=== PATIENT | male | born 1970 | race American Indian/Alaskan Native ===

== ENCOUNTER 2021-07-24 23:43 | Observation (INO) | payer BC, OTHER ==
[2021-07-25] MEDS ORDERED: ASPIRIN 325 MG TAB PO ONE (01:31)
[2021-07-25 02:09] LABS: Basophils # (Auto) 0.1 K/mm3 (0.0-0.1); Basophils % (Auto) 1.1 % (0.0-1.8); Eosinophils # (Auto) 0.6 K/mm3 (0.0-0.4); Eosinophils % (Auto) 7.7 % (0.0-4.3); Hematocrit 43.6 % (35.5-45.6); Hemoglobin 14.2 gm/dl (11.8-15.2); Lymphocytes # (Auto) 2.6 K/mm3 (1.2-5.4); Lymphocytes % (Auto) 34.9 % (13.4-35.0); Mean Corpuscular HGB Conc 33 % (32-34); Mean Corpuscular Volume 89 fl (84-94); Monocytes # (Auto) 0.6 K/mm3 (0.0-0.8); Monocytes % (Auto) 8.5 % (0.0-7.3); Platelet Count 277 K/mm3 (140-440); Red Blood Count 4.88 M/mm3 (3.65-5.03); Red Cell Distribution Width 13.8 % (13.2-15.2)
--- NOTE | 2021-07-25 02:10 | XRay Report ---
CHEST 2 VIEWS INDICATION / CLINICAL INFORMATION: chestpain. COMPARISON: None available. FINDINGS: SUPPORT DEVICES: None. HEART / MEDIASTINUM: Heart size and mediastinal contour appear within normal limits. LUNGS / PLEURA: No significant pulmonary or pleural abnormality. No pneumothorax. BONES: No significant osseous abnormality. ADDITIONAL FINDINGS: No significant additional findings. IMPRESSION: 1. No active cardiopulmonary disease. Signer Name: Trung Rodriguez II, MD Signed: 07/25/2021 2:06 AM Workstation Name: [id number]
[2021-07-25 02:20] LABS: Albumin 3.6 g/dL (3.9-5)
[2021-07-25 02:44] LABS: Chol/HDL Ratio 6.4 %
[2021-07-25] MEDS ORDERED: MORPHINE 4 MG/1 ML INJ IV ONE (02:58)
--- NOTE | 2021-07-25 02:58 | Emergency Department Report ---
ED Chest Pain HPI - General Chief Complaint: Chest Pain Stated Complaint: CHEST PAIN Time Seen by Provider: 07/25/21 01:53 Source: patient Mode of arrival: Stretcher Limitations: No Limitations - History of Present Illness Initial Comments: Patient 51-year-old male with history of coronary artery disease and 2 coronary stents presenting with complaint of chest pain. States the symptoms began yesterday. States he felt a burning sensation in his chest and subsequently took a sublingual nitroglycerin which initially improved his symptoms. States he experienced return of chest pain late tonight and took another nitroglycerin. He then told his sister to bring him to the emergency department for evaluation. He currently reports burning sensation in his right chest. Severity scale (0 -10): 5 - Related Data Allergies Allergy/AdvReac Type Severity Reaction Status Date / Time No Known Allergies Allergy Verified 07/25/21 01:57 Heart Score - HEART Score History: Moderately suspicious EKG: Normal Age: 45-65 Risk factors: > 3 risk factors or hx of atherosclerotic disease Troponin: 1-3x normal limit HEART Score: 5 - EKG Read Time Time EKG Completed: 01:35 EKG Read Time: 01:40 - Critical Actions Critical Actions: 4-6 pts:12-16.6% risk of adverse cardiac event. Should be admitted ED Review of Systems ROS: Stated complaint: CHEST PAIN Other details as noted in HPI Constitutional: denies: chills, fever Respiratory: denies: cough, shortness of breath, wheezing Cardiovascular: chest pain Gastrointestinal: denies: abdominal pain, nausea, diarrhea Genitourinary: denies: urgency, dysuria Musculoskeletal: denies: back pain, joint swelling, arthralgia Skin: denies: rash, lesions Neurological: denies: headache, weakness, paresthesias Psychiatric: denies: anxiety, depression ED Past Medical Hx - Past Medical History Previous Medical History?: Yes Hx Heart Attack/AMI: Yes - Surgical History Past Surgical History?: Yes Hx Coronary Stent: Yes - Social History Smoking Status: Unknown if ever smoked ED Physical Exam - General Limitations: No Limitations General appearance: alert, in no apparent distress - Head Head exam: Present: atraumatic, normocephalic - Neck Neck exam: Present: normal inspection - Respiratory Respiratory exam: Present: normal lung sounds bilaterally. Absent: respiratory distress - Cardiovascular Cardiovascular Exam: Present: regular rate, normal rhythm, normal heart sounds. Absent: systolic murmur, diastolic murmur, rubs, gallop - GI/Abdominal GI/Abdominal exam: Present: soft. Absent: distended, tenderness - Rectal Rectal exam: Present: deferred - Neurological Exam Neurological exam: Present: alert, oriented X3 - Psychiatric Psychiatric exam: Present: normal affect, normal mood - Skin Skin exam: Present: warm, dry, intact, normal color ED Course Vital Signs 07/25/21 07/25/21 07/25/21 01:35 01:37 01:45 Temperature 98 F Pulse Rate 91 H 78 Respiratory 18 18 Rate Blood Pressure 157/94 155/88 Blood Pressure [Left] O2 Sat by Pulse 100 95 99 Oximetry 07/25/21 07/25/21 01:58 02:01 Temperature 98.0 F Pulse Rate 88 Respiratory 14 14 Rate Blood Pressure 158/88 Blood Pressure 155/88 [Left] O2 Sat by Pulse 97 99 Oximetry ED Medical Decision Making - Lab Data Result diagrams: 07/25/21 01:42 07/25/21 01:42 - EKG Data EKG shows normal: sinus rhythm, axis, intervals, QRS complexes, ST-T waves Rate: normal - Radiology Data Radiology results: report reviewed No acute cardiopulmonary disease. - Medical Decision Making Initial troponin 0.035. No acute ischemic findings on EKG. chest x-ray unremarkable. Patient started on heparin drip. Will admit to hospitalist for NSTEMI. Critical Care Time: Yes Critical care time in (mins) excluding proc time.: 35 Critical care attestation.: If time is entered above; I have spent that time in minutes in the direct care of this critically ill patient, excluding procedure time. ED Disposition Clinical Impression: NSTEMI (non-ST elevated myocardial infarction) Disposition: ADMITTED INPATIENT Is pt being admited?: Yes Condition: Stable
[2021-07-25] MEDS ORDERED: HEPARIN 10,000 UNITS/10 ML VIAL IV PRN (02:59)
[2021-07-25] MEDS ORDERED: HEPARIN 10,000 UNITS/10 ML VIAL IV ONE ×2 (02:59→03:10)
[2021-07-25] MEDS ORDERED: ONDANSETRON 4 MG/2 ML INJ ONE (03:16)
[2021-07-25] MEDS: HEPARIN/ 0.45% NACL DRIP 25,000 UNIT/500 ML BAG IV SCH (03:46)
[2021-07-25] MEDS ORDERED: ONDANSETRON 4 MG/2 ML INJ IV ONE (03:47)
[2021-07-25] MEDS ORDERED: NITROGLYCERIN 0.4 MG TAB SUBL SL PRN (04:14)
[2021-07-25] MEDS ORDERED: traMADol 50 MG TAB PO PRN (04:14)
[2021-07-25] MEDS ORDERED: MORPHINE 4 MG/1 ML INJ IV PRN (04:14)
[2021-07-25] MEDS ORDERED: ACETAMINOPHEN 325 MG TAB PO PRN (04:14)
[2021-07-25] MEDS ORDERED: SODIUM CHLORIDE 0.9% 1000 ML 1,000 ML IV SCH (04:15)
--- NOTE | 2021-07-25 04:20 | History and Physical Report ---
History of Present Illness Date of examination: 07/25/21 Date of admission: 07/25/21 Chief complaint: Chest pain History of present illness: 51-year-old male with history of coronary artery disease and 2 coronary stents was brought to the emergency room because of chest pain. Chest pain is 5/10, burning sensation in his chest since yesterday and patient subsequently took a sublingual nitroglycerin which initially improved his symptoms. Patient experienced return of chest pain late tonight and took another nitroglycerin. He then told his sister to bring him to the emergency department for evaluation. He currently reports burning sensation in his right chest. In the emergency room patient is found to have troponin of 0.035 also patient triglyceride is 209 cholesterol 205 and LDL 138. Past History Past Medical History: acute IA, CAD, hypertension Past Surgical History: Other (Coronary stent) Social history: no significant social history Family history: hypertension Medications and Allergies Allergies Allergy/AdvReac Type Severity Reaction Status Date / Time No Known Allergies Allergy Verified 07/25/21 01:57 Active Meds: Active Medications Heparin Sodium (Porcine) (Heparin 10,000 Units/10 Ml Vial) 3,600 unit 40 unit/kg (3600 unit) IV Q6H PRN PRN Reason: Anti-Xa Assay < 0.1 units/ml Heparin Sodium/Sodium Chloride (Heparin/ 0.45% Nacl-25,000 Unit/500 Ml) 25,000 unit in 500 mls @ 20 mls/hr IV TITRATE [facility]; Protocol Last Admin: 07/25/21 03:46 Dose: 1,000 units/hr, 20 mls/hr Review of Systems All systems: negative Cardiovascular: chest pain, shortness of breath Exam - Constitutional Vitals: Temp Pulse Resp BP Pulse Ox 98.0 F 74 21 155/88 97 07/25/21 02:01 07/25/21 02:45 07/25/21 02:45 07/25/21 02:45 07/25/21 02:45 General appearance: Present: no acute distress, well-nourished - EENT Eyes: Present: PERRL ENT: hearing intact, clear oral mucosa - Neck Neck: Present: supple, normal ROM - Respiratory Respiratory effort: normal Respiratory: bilateral: CTA - Cardiovascular Heart Sounds: Present: S1 & S2. Absent: rub, click - Extremities Extremities: pulses symmetrical, No edema Peripheral Pulses: within normal limits - Abdominal General gastrointestinal: Present: soft, non-tender, non-distended, normal bowel sounds Male genitourinary: Present: normal - Integumentary Integumentary: Present: clear, warm, dry - Musculoskeletal Musculoskeletal: gait normal, strength equal bilaterally - Psychiatric Psychiatric: appropriate mood/affect, intact judgment & insight - Neurologic Neurologic: CNII-XII intact, moves all extremities HEART Score - HEART Score EKG: Normal Age: 45-65 Risk factors: > 3 risk factors or hx of atherosclerotic disease Troponin: Troponin T 0.035 ng/mL (0.00-0.029) H 07/25/21 01:42 Troponin: 1-3x normal limit - Critical Actions Critical Actions: 4-6 pts:12-16.6% risk of adverse cardiac event. Should be admitted Results - Labs CBC & Chem 7: 07/25/21 01:42 07/25/21 01:42 Labs: Laboratory Last Values WBC 7.3 K/mm3 (4.5-11.0) 07/25/21 01:42 RBC 4.88 M/mm3 (3.65-5.03) 07/25/21 01:42 Hgb 14.2 gm/dl (11.8-15.2) 07/25/21 01:42 Hct 43.6 % (35.5-45.6) 07/25/21 01:42 MCV 89 fl (84-94) 07/25/21 01:42 MCH 29 pg (28-32) 07/25/21 01:42 MCHC 33 % (32-34) 07/25/21 01:42 RDW 13.8 % (13.2-15.2) 07/25/21 01:42 Plt Count 277 K/mm3 (140-440) 07/25/21 01:42 Lymph % (Auto) 34.9 % (13.4-35.0) 07/25/21 01:42 Trigg % (Auto) 8.5 % (0.0-7.3) H 07/25/21 01:42 Eos % (Auto) 7.7 % (0.0-4.3) H 07/25/21 01:42 Baso % (Auto) 1.1 % (0.0-1.8) 07/25/21 01:42 Lymph # (Auto) 2.6 K/mm3 (1.2-5.4) 07/25/21 01:42 Trigg # (Auto) 0.6 K/mm3 (0.0-0.8) 07/25/21 01:42 Eos # (Auto) 0.6 K/mm3 (0.0-0.4) H 07/25/21 01:42 Baso # (Auto) 0.1 K/mm3 (0.0-0.1) 07/25/21 01:42 Seg Neutrophils % 47.8 % (40.0-70.0) 07/25/21 01:42 Seg Neutrophils # 3.5 K/mm3 (1.8-7.7) 07/25/21 01:42 Sodium 144 mmol/L (137-145) 07/25/21 01:42 Potassium 3.9 mmol/L (3.6-5.0) 07/25/21 01:42 Chloride 107.0 mmol/L (98-107) 07/25/21 01:42 Carbon Dioxide 26 mmol/L (22-30) 07/25/21 01:42 Anion Gap 15 mmol/L 07/25/21 01:42 BUN 14 mg/dL (9-20) 07/25/21 01:42 Creatinine 1.3 mg/dL (0.8-1.3) 07/25/21 01:42 Estimated GFR 59 ml/min 07/25/21 01:42 BUN/Creatinine Ratio 11 % 07/25/21 01:42 Glucose 111 mg/dL (75-100) H 07/25/21 01:42 Calcium 9.0 mg/dL (8.4-10.2) 07/25/21 01:42 Total Bilirubin 0.30 mg/dL (0.1-1.2) 07/25/21 01:42 AST 20 units/L (5-40) 07/25/21 01:42 ALT 11 units/L (7-56) 07/25/21 01:42 Alkaline Phosphatase 89 units/L (35-129) 07/25/21 01:42 Troponin T 0.035 ng/mL (0.00-0.029) H 07/25/21 01:42 Total Protein 6.1 g/dL (6.3-8.2) L 07/25/21 01:42 Albumin 3.6 g/dL (3.9-5) L 07/25/21 01:42 Albumin/Globulin Ratio 1.4 % 07/25/21 01:42 Triglycerides 209 mg/dL (2-149) H 07/25/21 01:42 Cholesterol 205 mg/dL (50-199) H 07/25/21 01:42 LDL Cholesterol Direct 138 mg/dL (50-130) H 07/25/21 01:42 HDL Cholesterol 32 mg/dL (40-59) L 07/25/21 01:42 Cholesterol/HDL Ratio 6.40 % 07/25/21 01:42 - Imaging and Cardiology Chest x-ray: report reviewed Assessment and Plan VTE prophylaxis?: Chemical Plan of care discussed with patient/family: Yes - Patient Problems (1) NSTEMI (non-ST elevated myocardial infarction) Status: Acute Plan to address problem: Admit the patient to the medical telemetry. NPO. Aspirin 325 mg p.o. daily. Lipitor 40 mg p.o. daily. Nitroglycerin as needed. Heparin drip. We do the serial cardiac enzyme. Cardiology consult. Echocardiogram (2) Hypertension Status: Acute Plan to address problem: Hydralazine 10 mg IV every 6 hours as needed. We continue the home medication (3) CAD (coronary artery disease) Status: Acute Plan to address problem: Aspirin 325 mg p.o. daily. Lipitor 40 mg p.o. daily. Nitroglycerin as needed. Heparin drip. We do the serial cardiac enzyme. Cardiology consult. Echocardiogram (4) DVT prophylaxis Status: Acute Plan to address problem: Heparin drip for DVT prophylaxis. Protonix 40 mg p.o. daily for GI prophylaxis. Patient is a full code
[2021-07-25 04:38] LABS: INR 0.92 (0.87-1.13); Partial Thromboplastin Time 25.9 Sec. (24.2-36.6)
[2021-07-25 05:32] LABS: Basophils # (Auto) 0.1 K/mm3 (0.0-0.1); Basophils % (Auto) 1.2 % (0.0-1.8); Eosinophils # (Auto) 0.6 K/mm3 (0.0-0.4); Eosinophils % (Auto) 7.9 % (0.0-4.3); Hematocrit 42.6 % (35.5-45.6); Hemoglobin 13.9 gm/dl (11.8-15.2); Lymphocytes # (Auto) 2.9 K/mm3 (1.2-5.4); Lymphocytes % (Auto) 39.8 % (13.4-35.0); Mean Corpuscular HGB Conc 33 % (32-34); Mean Corpuscular Volume 90 fl (84-94); Monocytes # (Auto) 0.6 K/mm3 (0.0-0.8); Monocytes % (Auto) 8.1 % (0.0-7.3); Platelet Count 264 K/mm3 (140-440); Red Blood Count 4.72 M/mm3 (3.65-5.03); Red Cell Distribution Width 13.8 % (13.2-15.2)
[2021-07-25 05:40] LABS: BUN/Creatinine Ratio 10; Blood Urea Nitrogen 13 mg/dL (9-20); Calcium 8.6 mg/dL (8.4-10.2); Hemolysis Index 11
[2021-07-25] MEDS: PANTOPRAZOLE 40 MG TAB PO SCH (09:45)
[2021-07-25] MEDS: LOSARTAN 50 MG TAB PO SCH (09:46)
[2021-07-25] MEDS: amLODIPine 10 MG TAB PO SCH (09:47)
--- NOTE | 2021-07-25 10:45 | Electrocardiograph Report ---
[facility] Test Date: 2021-07-25 Test Time: 01:35:35 Pat Name: LEROY PIÑA Department: Room: A452 1 Gender: M Hide Or Skin Buffer: KAILA : 1970 Requested By: KATHARINA BOWEN Order Number: [id number] Reading MD: Jovi Rodriges Measurements Intervals [place] Rate: 75 P: 27 WV: 208 QRS: -21 QRSD: 94 T: 3 QT: 368 QTc: 411 Interpretive Statements Sinus rhythm First-degree AV block Inferior infarct, old No previous ECG available for comparison Electronically Signed On 07-25-2021 10:44:53 EDT by Jovi Rodriges
--- NOTE | 2021-07-25 10:50 | Electrocardiograph Report ---
[facility] Test Date: 2021-07-25 Test Time: 07:24:02 Pat Name: LEROY PIÑA Department: Room: A452 1 Gender: M Lead Scientist: JOSE A : 1970 Requested By: KATHARINA BOWEN Order Number: [id number] Reading MD: Jovi Rodriges Measurements Intervals [place] Rate: 65 P: 36 [place]: 221 QRS: -16 QRSD: 96 T: 1 QT: 375 QTc: 391 Interpretive Statements Sinus rhythm First-degree AV block Inferior infarct, old No previous ECG available for comparison Electronically Signed On 07-25-2021 10:49:21 EDT by Jovi Rodriges
--- NOTE | 2021-07-25 11:57 | Event Note ---
Date: 07/25/21 Patient was evaluated this morning, he was found to be hemodynamically stable. #NSTEMI #CAD status post stents x2 Troponin 0.035--> 0.025 Patient still continues to endorse fluctuating chest pain Continue heparin drip, aspirin 81 mg daily, Lipitor 40 mg daily Cardiology consulted; pending recs TTE ordered to evaluate cardiac function Continue to monitor #Elevated blood pressure Starting losartan 100 mg daily and amlodipine 10 mg daily #Obesity #Weight loss counseling #Exercise counseling - BMI 31.1 - Counseled patient on the importance of weight loss, incorporating exercise, and dietary changes (lean meats, fresh fruits and vegetables, and water intake). Patient expresses understanding. - Time: +15 min #Coordination of CARE time: 30 minutes. Total visit time equals 30 or more minutes with greater than 50% spent [id number] on coordination of care and counseling. Advance care plan
--- NOTE | 2021-07-25 14:53 | Consultation ---
History of Present Illness Consult date: 07/25/21 Requesting physician: JEFFREY HINKLE Consult reason: chest pain History of present illness: The patient has a history of CAD, status post MT status post PCI in 2018 while residing in [place]. He presented to the ER with onset of burning right-sided chest pain at 11 AM yesterday. He claims that symptoms occurred intermittently all day and was associated with diaphoresis. He obtained relief with sublingual nitroglycerin only for the pain to begin again. As such, he presented to the emergency department yesterday evening. His symptoms have currently improved. Past History Past Medical History: acute MT (2018), CAD Past Surgical History: PTCA (2018) Social history: denies: smoking, alcohol abuse Family history: no significant family history Medications and Allergies Allergies Allergy/AdvReac Type Severity Reaction Status Date / Time ibuprofen [From Motrin] Allergy Swelling Verified 07/25/21 06:33 Active Meds: Active Medications Acetaminophen (Acetaminophen 325 Mg Tab) 650 mg PO Q6H PRN PRN Reason: Pain, Mild (1-3) Amlodipine Besylate (Amlodipine 10 Mg Tab) 10 mg PO QDAY [facility] Last Admin: 07/25/21 09:47 Dose: 10 mg Aspirin (Aspirin Ec 81 Mg Tab) 81 mg PO QDAY MATT Atorvastatin Calcium (Atorvastatin 40 Mg Tab) 40 mg PO QHS [facility] Heparin Sodium (Porcine) (Heparin 10,000 Units/10 Ml Vial) 3,600 unit 40 unit/k g (3600 unit) IV Q6H PRN PRN Reason: Anti-Xa Assay < 0.1 units/ml Heparin Sodium/Sodium Chloride (Heparin/ 0.45% Nacl-25,000 Unit/500 Ml) 25,000 unit in 500 mls @ 20 mls/hr IV TITRATE MATT; Protocol Last Titration: 07/25/21 12:30 Dose: 1,000 units/hr, 20 mls/hr Losartan Potassium (Losartan 50 Mg Tab) 100 mg PO QDAY [facility] Last Admin: 07/25/21 09:46 Dose: 100 mg Morphine Sulfate (Morphine 4 Mg/1 Ml Inj) 2 mg IV Q5MIN PRN PRN Reason: Chest Pain unrelieved by NTG Nitroglycerin (Nitroglycerin 0.4 Mg Tab Subl) 0.4 mg SL Q5M PRN PRN Reason: Chest Pain Pantoprazole Sodium (Pantoprazole 40 Mg Tab) 40 mg PO QDAY MATT Last Admin: 07/25/21 09:45 Dose: 40 mg Sodium Chloride (Sodium Chloride 0.9% 10 Ml Flush Syringe) 10 ml IV PRN PRN PRN Reason: LINE FLUSH Tramadol HCl (Tramadol 50 Mg Tab) 50 mg PO Q6H PRN PRN Reason: Pain, Moderate (4-6) Review of Systems Constitutional: no fever, no chills Ears, nose, mouth and throat: no ear pain, no ear discharge, no sore throat Cardiovascular: chest pain, no palpitations, no edema, no lightheadedness, no shortness of breath Respiratory: no cough, no hemoptysis Gastrointestinal: no abdominal pain, no nausea, no vomiting, no diarrhea, no constipation, no change in bowel habits Genitourinary Male: no dysuria, no flank pain Rectal: no pain, no bleeding Musculoskeletal: no neck stiffness, no neck pain, no muscle weakness, no myalgias Integumentary: no rash, no pruritis Neurological: no weakness, no parathesias, no headaches Endocrine: no cold intolerance, no heat intolerance Hematologic/Lymphatic: no easy bruising, no easy bleeding Allergic/Immunologic: no urticaria, no wheezing Physical Examination Vital Signs Temp Pulse Resp BP Pulse Ox 98 F 91 H 18 157/94 100 07/25/21 01:35 07/25/21 01:35 07/25/21 01:35 07/25/21 01:35 07/25/21 01:35 General appearance: no acute distress HEENT: Positive: EOMI, Normocephaly, Mucus Membranes Moist Neck: Positive: neck supple, trachea midline Cardiac: Positive: Reg Rate and Rhythm Lungs: Positive: clear to auscultation Neuro: Positive: Grossly Intact Abdomen: Positive: Unremarkable, Soft, Active Bowel Sounds. Negative: Tender Skin: Positive: Clear. Negative: Rash Musculoskeletal: Normal Range of Motion Extremities: Present: normal. Absent: edema Results 07/25/21 05:05 07/25/21 05:05 Cardiac Enzymes 07/25/21 Range/Units 01:42 AST 20 (5-40) units/L Coagulation 07/25/21 Range/Units 03:29 PT 13.4 (12.2-14.9) Sec. INR 0.92 (0.87-1.13) APTT 25.9 (24.2-36.6) Sec. Lipids 07/25/21 Range/Units 01:42 Triglycerides 209 H (2-149) mg/dL Cholesterol 205 H (50-199) mg/dL HDL Cholesterol 32 L (40-59) mg/dL Cholesterol/HDL Ratio 6.40 % CBC 07/25/21 07/25/21 Range/Units 01:42 05:05 WBC 7.3 7.2 (4.5-11.0) K/mm3 RBC 4.88 4.72 (3.65-5.03) M/mm3 Hgb 14.2 13.9 (11.8-15.2) gm/dl Hct 43.6 42.6 (35.5-45.6) % Plt Count 277 264 (140-440) K/mm3 Lymph # (Auto) 2.6 2.9 (1.2-5.4) K/mm3 [place] # (Auto) 0.6 0.6 (0.0-0.8) K/mm3 Eos # (Auto) 0.6 H 0.6 H (0.0-0.4) K/mm3 Baso # (Auto) 0.1 0.1 (0.0-0.1) K/mm3 Comprehensive Metabolic Panel 07/25/21 07/25/21 Range/Units 01:42 05:05 Sodium 144 141 (137-145) mmol/L Potassium 3.9 3.9 (3.6-5.0) mmol/L Chloride 107.0 106.4 (98-107) mmol/L Carbon Dioxide 26 26 (22-30) mmol/L BUN 14 13 (9-20) mg/dL Creatinine 1.3 1.3 (0.8-1.3) mg/dL Glucose 111 H 164 H (75-100) mg/dL Calcium 9.0 8.6 (8.4-10.2) mg/dL AST 20 (5-40) units/L ALT 11 (7-56) units/L Alkaline Phosphatase 89 (35-129) units/L Total Protein 6.1 L (6.3-8.2) g/dL Albumin 3.6 L (3.9-5) g/dL - Imaging and Cardiology EKG: image reviewed EKG interpretations - Telemetry EKG Rhythm: Sinus Rhythm Assessment and Plan Initiate anti-ischemic regimen. Schedule Lexiscan stress MPI in a.m. - Patient Problems (1) Chest pain Current Visit: Yes Status: Acute (2) Elevated troponin Current Visit: Yes Status: Acute (3) CAD (coronary artery disease) Current Visit: Yes Status: Chronic Qualifiers: Coronary Disease-Associated Artery/Lesion type: benton artery (4) Stented coronary artery Current Visit: Yes Status: Chronic (5) Hypertension Current Visit: Yes Status: Acute Qualifiers: Hypertension type: primary hypertension Qualified Code(s): I10 - Essential (primary) hypertension
[2021-07-25] MEDS: NITROGLYCERIN 2% OINT 1 GM TP SCH (18:45)
[2021-07-25] MEDS ORDERED: METOPROLOL TARTRATE 25 MG TAB PO SCH (22:00)
[2021-07-26] MEDS: HEPARIN/ 0.45% NACL DRIP 25,000 UNIT/500 ML BAG IV SCH (04:09)
[2021-07-26] MEDS: NITROGLYCERIN 2% OINT 1 GM TP SCH ×2 (05:40→12:30)
[2021-07-26] MEDS ORDERED: REGADENOSON 0.4 MG/5 ML INJ IV ONE (06:52)
--- NOTE | 2021-07-26 09:33 | Electrocardiograph Report ---
[facility] Test Date: 2021-07-25 Test Time: 10:53:54 Pat Name: LEROY PIÑA Department: Room: A452 1 Gender: M Blackjack Dealer: JOSE A : 1970 Requested By: JEFFREY HINKLE Order Number: [id number] Reading MD: Michael Hilton Measurements Intervals [place] Rate: 64 P: 23 [place]: 215 QRS: -21 QRSD: 97 T: -9 QT: 382 QTc: 393 Interpretive Statements Sinus rhythm Prolonged CA interval nonspecific st-t Compared to ECG 07/25/2021 07:24:02 First degree AV block now present Myocardial infarct finding no longer present Electronically Signed On 07-26-2021 9:32:47 EDT by Michael Hilton
[2021-07-26] MEDS ORDERED: ASPIRIN EC 325 MG TAB PO SCH ×2 (10:00)
[2021-07-26] MEDS ORDERED: METOPROLOL TARTRATE 25 MG TAB PO SCH (10:00)
[2021-07-26] MEDS ORDERED: ASPIRIN EC 81 MG TAB PO SCH (10:00)
--- NOTE | 2021-07-26 10:48 | Nuclear Medicine Report ---
APPROVED REPORT Exam: Nuclear Stress Test Indication: Chest pain [facility] Ht: 5 ft 7 in Wt: 197 lbs BSA: 2.01 m2 HR: 72 bpmBP: 166/100 mmHgBMI: 30.85 Rhythm: SINUS RHYTHM WITHNS ET ELEVATION Stress Test Details Stress Test: Pharmacologic stress testing performed using 0.4 mg of regadenoson per 5 mL given IV over 10 seconds. Reason for pharmacologic stress test: physical limitation. HR Resting HR: 72 bpm Max HR Achieved: 104 bpm Max Heart Rate (APMHR): 171.733302 bpm Target HR (85% APMHR): 145.315823 bpm % of APMHR: 60.82 Recovery HR: 101 bpm BP Resting BP: 166/100 mmHg Max BP: 188/105 mmHg Recovery BP: 162/96 mmHg ECG Resting ECG: Sinus Rhythm Stress ECG: Sinus Tachycardia Recovery ECG: SINUS TACHYCARDIA NM EXAM: Myocardial Perfusion REST/STRESS Imaging Protocol: Rest Tc-99m/Stress Tc-99m 1 day Resting Data Rest SPECT myocardial perfusion imaging was performed in supine position 45 minutes following the intravenous injection of 10 mCi of Tc-99m Myoview. Time of rest injection: 0700 Pharmacologic Stress Pharmacologic stress test was performed by injecting Regadenoson 0.4 mg IV push followed by the intravenous injection of 28 mCi of Tc-99m Myoview. Time of stress injection: 0845 Gated Stress SPECT was performed 30 minutes after stress injection. The images were gated to evaluate regional wall motion and calculate left ventricular ejection fraction. Study Quality Study: excellent Lung Uptake: Normal Study Data TID = 1.07. Perfusion Wall Motion The rest and stress images show normal left ventricular wall motion. Nuclear Conclusion ECG Findings: negative for ischemia Clinical Findings: negative for ischemia Nuclear Findings: negative for ischemia Exercise Capacity: not assessed Left Ventricular Function: normal Risk Study: low Negative Lexiscan EKG patient has normal perfusion anterior inferior lateral and septal regions with a small mild fixed apical defect. With normal LV function. No significant ischemia noted
--- NOTE | 2021-07-26 10:58 | Discharge Summary ---
Providers - Providers Date of Admission: 07/25/21 04:14 Date of discharge: 07/26/21 Attending physician: LUIZA ROOT MD 07/25/21 Consult to Cardiac Rehabilitation [CONS] Routine Reason For Exam: Phase I 07/25/21 04:14 Consult to Cardiology [CONS] Routine Consulting Provider: BERONICA SILVERMAN Reason For Exam: Non-ST elevation GA Hospitalization Reason for admission: Chest pain, NSTEMI Condition: Stable Pertinent studies: Reviewed. Procedures: Myocardial perfusion scanunremarkable for reversible ischemia Hospital course: Patient is a 51-year-old male past medical history of CAD status post PCI x2, hypertension, and obesity who presented to the emergency department with episodes of periodic chest pain that had worsened in intensity of the previous 2-3 weeks. The chest pain got up to a 5/10 with a burning sensation in his right upper chest. The patient remembers having atypical chest pain (right upper chest) with his first GA. In the emergency department, the patient was found be hemodynamically stable. Labs were remarkable for troponin of 0.035. The patient endorsed having significant life stressors such as the untimely of his nephew. The chest pain significantly worsened the day after his . Patient was initiated on heparin drip for NSTEMI due to his prior cardiac history. Cardiology was consulted for further management. The patient underwent myocardial perfusion scan that was unremarkable for reversible ischemia. The patient is medically clear for discharge. Disposition: 01 HOME / SELF CARE / HOMELESS Final Discharge Diagnosis (Prints w/discharge instructions): NSTEMI, CAD status post stents x2, hypertension, obesity. Time spent for discharge: 45 min Core Measure Documentation - Palliative Care Palliative Care/ Comfort Measures: Not Applicable - Core Measures Any of the following diagnoses?: none Exam - Constitutional Vitals: Temp Pulse Resp BP Pulse Ox 98.4 F 96 H 17 188/105 98 07/26/21 05:45 07/26/21 07:00 07/26/21 05:45 07/26/21 08:52 07/26/21 07:00 General appearance: Present: no acute distress, well-nourished, obese - EENT Eyes: Present: PERRL, EOM intact ENT: hearing intact, clear oral mucosa, dentition normal - Neck Neck: Present: supple, normal ROM - Respiratory Respiratory effort: normal Respiratory: bilateral: CTA - Cardiovascular Rhythm: regular Heart Sounds: Present: S1 & S2 - Extremities Extremities: no ischemia, pulses intact, pulses symmetrical, No edema, normal temperature, normal color, Full ROM Peripheral Pulses: within normal limits - Abdominal General gastrointestinal: Present: soft, non-tender, non-distended, normal bowel sounds Male genitourinary: Present: deferred - Rectal Rectal Exam: deferred - Integumentary Integumentary: Present: clear, warm, dry - Musculoskeletal Musculoskeletal: strength equal bilaterally - Psychiatric Psychiatric: appropriate mood/affect, intact judgment & insight, memory intact, cooperative - Neurologic Neurologic: CNII-XII intact, moves all extremities - Allied Health Allied health notes reviewed: nursing Plan Activity: no restrictions Diet: low salt Additional Instructions: Patient is a 51-year-old male past medical history of CAD status post PCI x2, hypertension, and obesity who presented to the emergency department with episodes of periodic chest pain that had worsened in intensity of the previous 2-3 weeks. The chest pain got up to a 5/10 with a burning sensation in his right upper chest. The patient remembers having atypical chest pain (right upper chest) with his first GA. In the emergency department, the patient was found be hemodynamically stable. Labs were remarkable for troponin of 0.035. The patient endorsed having significant life stressors such as the untimely of his nephew. The chest pain significantly worsened the day after his . Patient was initiated on heparin drip for NSTEMI due to his prior cardiac history. Cardiology was consulted for further management. The patient underwent myocardial perfusion scan that was unremarkable for reversible ischemia. The patient is medically clear for discharge. Care Plan Goals: Patient is medically clear for discharge. Assessment: Patient is a 51-year-old male past medical history of CAD status post PCI x2, hypertension, and obesity who presented to the emergency department with episodes of periodic chest pain that had worsened in intensity of the previous 2-3 weeks. The chest pain got up to a 5/10 with a burning sensation in his right upper chest. The patient remembers having atypical chest pain (right upper chest) with his first GA. In the emergency department, the patient was found be hemodynamically stable. Labs were remarkable for troponin of 0.035. The patient endorsed having significant life stressors such as the untimely of his nephew. The chest pain significantly worsened the day after his . Patient was initiated on heparin drip for NSTEMI due to his prior cardiac history. Cardiology was consulted for further management. The patient underwent myocardial perfusion scan that was unremarkable for reversible ischemia. The patient is medically clear for discharge. Follow up with: NADEGE GONZALEZ [Other] - 7 Days Forms: Work/School Release Form Prescriptions: AtorvaSTATin [Lipitor] 40 mg PO QHS #30 tablet amLODIPine 10 mg PO QDAY #30 tablet Losartan [Cozaar] 100 mg PO QDAY #30 tablet Aspirin EC [Halfprin EC] 81 mg PO QDAY #30 tablet Metoprolol [Lopressor TAB] 50 mg PO BID #60 tablet
--- NOTE | 2021-07-26 10:58 | Progress Note ---
Assessment and Plan The patient has a history of CAD, status post OK status post PCI in 2018 while residing in [place]. He presented to the ER with onset of burning right-sided chest pain at 11 AM the day prior to admission. Chest pain Coronary artery disease s/p PCI NSTEMI Hypertension Lexiscan MPI stress test 07/26/2021-negative Lexiscan EKG patient has normal perfusion in anterior, inferior, lateral, and septal region with mild small fixed apical defect. No significant ischemia noted Plan: Patient currently chest pain free Patient had negative stress test this a.m. See report for full detail Continue aspirin, amlodipine, Lipitor, losartan Will increase metoprolol to 50 mg p.o. twice daily due to hypertension and elevated heart rate Patient cardiac status otherwise stable for discharge. Patient should follow-up with her primary video photographer in 1 to 2 weeks after discharge Patient in conjunction with Dr. Hilton who agrees with this plan Subjective Date of service: 07/26/21 Principal diagnosis: Chest Pain Interval history: Patient for stress test this a.m. Sinus 90s with no events on Objective Vital Signs Temp Pulse Pulse Resp BP BP Pulse Ox 07/26/21 08:52 188/105 07/26/21 08:49 174/102 07/26/21 08:48 176/97 07/26/21 08:47 141/113 07/26/21 08:46 162/96 07/26/21 07:47 166/100 07/26/21 07:00 99 H 96 H 98 07/26/21 05:45 98.4 F 70 17 155/90 93 07/26/21 05:38 98.4 F 70 17 155/91 93 07/26/21 05:26 17 07/26/21 04:56 17 07/26/21 00:00 78 07/25/21 21:10 73 133/78 07/25/21 21:08 97.9 F 73 17 133/78 97 07/25/21 20:00 98 07/25/21 19:45 78 07/25/21 18:45 79 149/98 07/25/21 16:00 97.4 F L 65 20 163/87 97 07/25/21 14:30 65 07/25/21 12:00 97.6 F 68 16 149/98 97 - Physical Examination General: No Apparent Distress HEENT: Positive: EOMI, Normocephaly, Mucus Membranes Moist Neck: Positive: neck supple, trachea midline Cardiac: Positive: Reg Rate and Rhythm Lungs: Positive: Normal Breath Sounds Neuro: Positive: Grossly Intact Abdomen: Positive: Unremarkable, Soft, Active Bowel Sounds. Negative: Tender Skin: Positive: Clear. Negative: Rash Musculoskeletal: Normal Range of Motion Extremities: Present: normal. Absent: edema - Imaging and Cardiology EKG: image reviewed Nuclear stress test: report reviewed - Telemetry EKG Rhythm: Sinus Rhythm - EKG Sinus rhythms and dysrhythmias: sinus rhythm
[2021-07-26] MEDS: LOSARTAN 50 MG TAB PO SCH (11:21)
[2021-07-26] MEDS: PANTOPRAZOLE 40 MG TAB PO SCH (11:21)
[2021-07-26] MEDS: amLODIPine 10 MG TAB PO SCH (11:22)
[2021-07-26 11:43] VITALS: BP 149/90
== END 2021-07-26 11:50 | disposition home or self-care (01) ==
LOC: ED 23:43 → INTOOBSV 07-25 04:14 → 4A 07-25 04:14
PROVIDERS: ADMIT Hospitalist; ATTEND Student in an Organized Health Care Education/Training Program
DX: I21.4 Non-ST elevation (NSTEMI) myocardial infarction (principal); I10 Essential (primary) hypertension; I25.10 Atherosclerotic heart disease of native coronary artery without angina pectoris; I25.2 Old myocardial infarction; E66.9 Obesity, unspecified; R77.8 Other specified abnormalities of plasma proteins; R07.89 Other chest pain; Z95.1 Presence of aortocoronary bypass graft; Z68.31 Body mass index [BMI] 31.0-31.9, adult; Z79.899 Other long term (current) drug therapy; Z98.890 Other specified postprocedural states; Z79.82 Long term (current) use of aspirin
CPT/HCPCS: 36415; 71046; 78452; 80053; 80061; 84484; 85014; 85018; 85025; 85520; 85610; 85730; 93005; 93017; 96365; 96366; 96372; 96375; 96376; 99291; A9502; C8929; G0378; J1644; J2270; J2405; J2785; 80048; 93306; J3490